=== PATIENT | male | born 2000 | race Caucasian/White ===

== ENCOUNTER 2022-07-26 15:56 | Outpatient (CLI) | payer OTHER | END 2022-07-26 15:57 | disposition home or self-care (01) | LOC: CSHULT 15:56 | PROVIDERS: ATTEND Orthopaedic Surgery | DX: I82.402 Acute embolism and thrombosis of unspecified deep veins of left lower extremity (principal) ==

== ENCOUNTER 2022-09-14 15:30 | Emergency (ER) | payer SELFPAY | END 2022-09-14 15:58 | disposition left against medical advice (07) | LOC: CSHERS 15:30 | DX: Z53.21 Procedure and treatment not carried out due to patient leaving prior to being seen by health care provider (principal) ==